=== PATIENT | female | born 1950 ===

== ENCOUNTER 2018-05-25 14:48 | Day surgery (SDC) | payer MEDICARE ==
[~2018-05-25 14:48] MED LIST: Buffered Lidocaine 0.9% SYRIN* 5 ML/SYR SYRINGE INTRADERM ONE
[2018-05-25] MEDS ORDERED: Naloxone* 0.4 MG/ML 1 ML VIAL IV PRN (15:13)
[2018-05-25] MEDS ORDERED: ceFAZolin 2 GM PREMIX in ORs 2 GM/50 ML BAG IVPB ONE (15:20)
[2018-05-25] MEDS ORDERED: Lidocain 1% EPI 1:100,000 * 30 ML MDV ONE (16:15)
[2018-05-25] MEDS ORDERED: Midazolam* 1 MG/ML 2 ML VIAL (2 MG) ONE ×2 (16:34→16:56)
[2018-05-25] MEDS ORDERED: fentaNYL* 50 MCG/ML 2 ML VIAL (100 MCG VIAL) ONE (16:35)
[2018-05-25] MEDS ORDERED: Propofol* 10 MG/ML 20 ML BTL IV PUSH ONE (16:47)
[2018-05-25] MEDS ORDERED: Lidocaine 2% PF * 5 ML VIAL ONE (16:47)
[2018-05-25 17:37] VITALS: BP 119/69
== END 2018-05-25 17:45 | disposition home or self-care (01) ==
LOC: OR 14:48
PROVIDERS: ATTEND Plastic Surgery
DX: D18.01 Hemangioma of skin and subcutaneous tissue (principal); I10 Essential (primary) hypertension; E11.9 Type 2 diabetes mellitus without complications; Z79.84 Long term (current) use of oral hypoglycemic drugs
CPT/HCPCS: 88305; 88341; 88342; J0690; J2250; J2704; J3010